=== PATIENT | male | born 2000 | race Caucasian/White ===

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

== ENCOUNTER 2018-01-01 01:05 | Emergency (ER) | payer BC ==
[~2018-01-01] VITALS: Ht 188 cm; Wt 68.2 kg
[2018-01-01 01:06] VITALS: Ht 188 cm; Wt 68.2 kg
[2018-01-01 03:06] VITALS: BP 144/71
== END 2018-01-01 03:42 | disposition home or self-care (01) ==
LOC: D.ER 01:05
DX: F41.0 Panic disorder [episodic paroxysmal anxiety] (principal)

== ENCOUNTER 2018-01-09 20:38 | Emergency (ER) | payer BC ==
[~2018-01-09] VITALS: Ht 188 cm; Wt 72.7 kg
[2018-01-09 20:57] VITALS: Ht 188 cm; Wt 72.7 kg
[2018-01-10] MEDS ORDERED: ZOFRAN ODT4 MG/UDTAB PO (00:16)
[2018-01-10 00:26] VITALS: BP 128/77
== END 2018-01-10 00:27 | disposition home or self-care (01) ==
LOC: D.ER 20:38
DX: K52.9 Noninfective gastroenteritis and colitis, unspecified (principal); R11.2 Nausea with vomiting, unspecified

== ENCOUNTER 2018-01-16 09:41 | Emergency (ER) | payer SELFPAY ==
[~2018-01-16] VITALS: Ht 188 cm; Wt 63.6 kg
[~2018-01-16 09:41] MED LIST: ZOFRAN ODT4 MG/UDTAB PO
[2018-01-16 09:45] VITALS: Ht 188 cm; Wt 63.6 kg
[2018-01-16 10:31] LABS: BASOPHILS 0.2 % (0-2); EOSINOPHILS 0.6 % (0-7); HEMATOCRIT 41.5 % (42.0-54.0); HEMOGLOBIN 14.3 g/dL (13.5-17.5); IMMATURE GRANULOCYTES 0.1 % (0-5); LYMPHOCYTES 11.2 % (15-50); MCH 30.6 pg (26.0-34.0); MCHC 34.5 g/dL (31.0-37.0); MCV 88.7 fL (80.0-100.0); MEAN PLATELET VOLUME 10.4 fL (7.4-10.4); MONOCYTES 6.8 % (2-11); NEUTROPHILS 81.1 % (40-80); PLATELET COUNT 217 10x3/uL (130-400); RBC 4.68 10x6/uL (4.20-6.10); RDW 12.2 % (11.5-14.5); WBC 9.8 10x3/uL (4.8-10.8)
[2018-01-16 10:44] LABS: ALBUMIN 3.9 g/dL (3.4-5.0); ALKALINE PHOSPHATASE 73 U/L (46-116); ALT (SGPT) 14 U/L (10-68); BILIRUBIN - TOTAL 0.43 mg/dL (0.2-1.3); CALC OSMOLALITY 282 mosm/kg (275-300); CALCIUM 9.3 mg/dL (8.5-10.1); CARBON DIOXIDE 27.2 mmol/L (21.0-32.0); CHLORIDE - SERUM 106 mmol/L (98-107); GLUCOSE 98 mg/dL (74-106); POTASSIUM - SERUM 3.9 mmol/L (3.5-5.1); SODIUM 141 mmol/L (136-145); UREA NITROGEN 17 mg/dL (7-18); eGFR NON AFRICAN AMERICAN > 90 mL/min (90-120)
[2018-01-16 11:35] LABS: APPEARANCE CLOUDY (CLEAR); BILIRUBIN NEGATIVE (NEGATIVE); COLOR YELLOW (YELLOW); GLUCOSE NEGATIVE (NEGATIVE); KETONE NEGATIVE (NEGATIVE); NITRITE NEGATIVE (NEGATIVE); PROTEIN NEGATIVE (NEGATIVE); UROBILINOGEN NORMAL (NORMAL)
[2018-01-16 11:49] LABS: UDS - AMPHET NEGATIVE QUAL (NEGATIVE); UDS - BARB NEGATIVE QUAL (NEGATIVE); UDS - BENZO NEGATIVE QUAL (NEGATIVE); UDS - COCAINE NEGATIVE QUAL (NEGATIVE); UDS - OPIATE NEGATIVE QUAL (NEGATIVE); UDS - PCP NEGATIVE QUAL (NEGATIVE); UDS - THC NEGATIVE QUAL (NEGATIVE)
[2018-01-16 12:16] VITALS: BP 114/82
== END 2018-01-16 12:18 | disposition home or self-care (01) ==
LOC: D.ER 09:41
PROVIDERS: Family Medicine
DX: R25.1 Tremor, unspecified (principal); F41.9 Anxiety disorder, unspecified

== ENCOUNTER 2018-01-18 09:45 | Emergency (ER) | payer MEDICAID ==
[~2018-01-18] VITALS: Ht 188 cm; Wt 70.9 kg
[2018-01-18 09:45] VITALS: Ht 188 cm; Wt 70.9 kg
[2018-01-18] MEDS ORDERED: IBUPROFEN800 MG PO (10:07)
[2018-01-18 10:31] VITALS: BP 124/76
== END 2018-01-18 10:34 | disposition home or self-care (01) ==
LOC: D.ER 09:45
DX: R07.89 Other chest pain (principal)